=== PATIENT | male | born 1945 | race Caucasian/White ===

== ENCOUNTER 2019-03-16 10:12 | Emergency (ER) | payer MEDICARE, OTHER ==
[~2019-03-16] VITALS: Ht 177.8 cm; Wt 86.6 kg
[2019-03-16] MEDS ORDERED: ZESTRIL5 MG (10:22)
[2019-03-16] MEDS ORDERED: ACETAMINOPHEN500 MG (10:23)
--- OUTSIDE RECORDS SUMMARY | 2019-03-16 13:02 | XMS ---
PreManage Notification: RASHAD AMIN Security Domestic Technician Events No recent Security Events currently on file CRITERIA MET - [facility] - 2 Visits in 30 Days [facility]: [phone] MIRELLA CAMPOS Primary Care Current ALEX PHONE: Unknown MIRELLA JOHNSON Primary Care Current PHONE: [phone] Santosh has no Care Guidelines for this patient. EAntoinette VISIT COUNT (12 MO.) 2 Alec Dean TOTAL 3 NOTE: Visits indicate total known visits. ED/UCC VISIT TRACKING (12 MO.) 03/16/2019 10:13 [facility] TYPE: Emergency COMPLAINT: - HIP PAIN 02/28/2019 12:22 [facility] TYPE: Emergency 07/06/2018 03:00 [facility] TYPE: Emergency INPATIENT VISIT TRACKING (12 MO.) 10/22/2018 07:16 [facility] 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
== END 2019-03-16 13:01 | disposition home or self-care (01) ==
LOC: ED 10:12
DX: T84.020A Dislocation of internal right hip prosthesis, initial encounter (principal); Z87.891 Personal history of nicotine dependence; Z79.899 Other long term (current) drug therapy; W18.30XA Fall on same level, unspecified, initial encounter
CPT/HCPCS: 27250; 73501; 73502; 99152; 99283-25; J2405; J2704; J3010